=== PATIENT | female | born 1990 | race Caucasian/White ===

== ENCOUNTER 2017-06-17 23:20 | Emergency (ER) | payer OTHER ==
[~2017-06-17] VITALS: Ht 154.9 cm; Wt 61.8 kg
[~2017-06-17 23:20] MED LIST: ASPI1TAB30 PO; ETON1VAG VG; LORAZEPAM PO; NITR50CA PO; VIT1CAPS34 PO; VORT10TA PO
[2017-06-17] MEDS ORDERED: LORA1TAB PO (23:50)
[2017-06-18] MEDS ORDERED: SODIUM CHLORIDE FLUSH 10ML SYR IVF ONE
[2017-06-18] MEDS ORDERED: MORPHINE SULFATE 4 MG/ML, 1ML IVPush PRN
[2017-06-18] MEDS ORDERED: ONDANSETRON 2MG/ML, 2ML IVPush ONE
[2017-06-18] MEDS ORDERED: SODIUM CHLORIDE 0.9% 1,000ML IVBOLUS ONE
[2017-06-18] MEDS ORDERED: MORPHINE SULFATE 4 MG/ML, 1ML ONE (00:09)
[2017-06-18] MEDS ORDERED: ONDANSETRON 2MG/ML, 2ML ONE (00:09)
[2017-06-18 00:25] LABS: ASPARTATE AMINO TRANSFERASE 15 U/L (15-37); BLOOD UREA NITROGEN 10 mg/dL (7-18)
[2017-06-18 02:00] VITALS: BP 117/78
== END 2017-06-18 02:05 | disposition home or self-care (01) ==
LOC: ED 06-18 01:28
DX: R10.2 Pelvic and perineal pain (principal); R11.0 Nausea; Z87.891 Personal history of nicotine dependence; Z90.49 Acquired absence of other specified parts of digestive tract
CPT/HCPCS: 36415; 76830; 80053; 81003; 84703; 85025; 93005; 96361; 96374; 96375; 99285; J2405; J7030

== ENCOUNTER 2017-08-23 18:07 | Emergency (ER) | payer OTHER ==
[~2017-08-23] VITALS: Ht 154.9 cm; Wt 60.4 kg
[~2017-08-23 18:07] MED LIST changes: -ASPI1TAB30 PO; +ASPI1TAB31 PO; +LORA1TAB PO
[2017-08-23] MEDS ORDERED: METHOCARBAMOL 750 MG TABLET PO ONE (19:00)
[2017-08-23] MEDS ORDERED: METHOCARBAMOL 750 MG TABLET ONE (19:17)
[2017-08-23] MEDS ORDERED: ONDANSETRON ODT 4 MG ONE (19:19)
[2017-08-23] MEDS ORDERED: ONDANSETRON ODT 4 MG PO ONE (19:30)
[2017-08-23 21:23] VITALS: BP 126/62
== END 2017-08-23 21:26 | disposition home or self-care (01) ==
LOC: ED 20:34
DX: S16.1XXA Strain of muscle, fascia and tendon at neck level, initial encounter (principal); S29.012A Strain of muscle and tendon of back wall of thorax, initial encounter; G89.11 Acute pain due to trauma; Z87.891 Personal history of nicotine dependence; V43.52XA Car driver injured in collision with other type car in traffic accident, initial encounter; Y93.89 Activity, other specified; Y92.410 Unspecified street and highway as the place of occurrence of the external cause; Y99.8 Other external cause status
CPT/HCPCS: 72072; 72125; 73610; 81001; 87086; 99285; Q0162

== ENCOUNTER 2018-04-07 00:53 | Emergency (ER) | payer OTHER ==
[~2018-04-07] VITALS: Ht 154.9 cm; Wt 63.1 kg
[2018-04-07 00:54] VITALS: BP 145/96
[2018-04-07] MEDS ORDERED: NITR100C56 PO (01:05)
[2018-04-07] MEDS ORDERED: PRENATAL (01:05)
[2018-04-07 01:37] LABS: CULTURE INDICATED? YES; HCG UR SG 1.011 (1.003-1.030); MICROSCOPIC AUTO
== END 2018-04-07 02:12 | disposition home or self-care (01) ==
LOC: ED 02:05
DX: N30.90 Cystitis, unspecified without hematuria (principal); Z87.891 Personal history of nicotine dependence; Z90.49 Acquired absence of other specified parts of digestive tract
CPT/HCPCS: 81001; 81025; 87086; 99284

== ENCOUNTER 2018-06-04 16:34 | Emergency (ER) | payer OTHER ==
[~2018-06-04] VITALS: Ht 162.6 cm; Wt 68.0 kg
[~2018-06-04 16:34] MED LIST changes: +NITR100C56 PO; +PRENATAL
[2018-06-04 17:13] LABS: BASOPHILS # (AUTO) 0.03 x10^3/uL (0-0.1); BASOPHILS % (AUTO) 1 % (0-1); EOSINOPHILS # (AUTO) 0.21 x10^3/uL (0-0.4); EOSINOPHILS % (AUTO) 4 % (1-7); LYMPHOCYTES # (AUTO) 1.91 x10^3/uL (1-3.4); LYMPHOCYTES % (AUTO) 34 % (22-44); MD NO; MEAN CORPUSCULAR HEMOGLOBIN 31.3 pg (27.0-34.8); MEAN CORPUSCULAR HGB CONC 34.4 g/dL (32.4-35.8); MEAN PLATELET VOLUME 7.7 fL (7.4-10.4); MONOCYTES # (AUTO) 0.51 x10^3/uL (0.2-0.8); MONOCYTES % (AUTO) 9 % (2-9); NEUTROPHILS # (AUTO) 2.93 x10^3/uL (1.8-6.8); NEUTROPHILS % (AUTO) 52 % (42-75); PLATELET COUNT 268 x10^3/uL (130-400); RED BLOOD COUNT 4.62 x10^6/uL (3.82-5.3); RED CELL DISTRIBUTION WIDTH 13.4 % (9.6-15.2)
[2018-06-04] MEDS ORDERED: PREN1TAB28 PO (17:15)
[2018-06-04 17:19] LABS: MICROSCOPIC NOT IND
[2018-06-04 17:20] LABS: CULTURE INDICATED? NO
[2018-06-04 17:24] LABS: ALBUMIN 3.8 g/dL (3.4-5.0); ANION GAP 6 mmol/L (5-15); CALCIUM 8.9 mg/dL (8.5-10.1); CHLORIDE 105 mmol/L (98-107); CREATININE 0.67 mg/dL (0.55-1.02)
[2018-06-04 18:14] VITALS: BP 125/80
== END 2018-06-04 18:34 | disposition home or self-care (01) ==
LOC: ED 18:29
DX: R10.2 Pelvic and perineal pain (principal); K59.00 Constipation, unspecified; R11.0 Nausea; Z87.442 Personal history of urinary calculi; Z90.89 Acquired absence of other organs
CPT/HCPCS: 36415; 74018; 76830; 80048; 81003; 82040; 84703; 85025; 86901; 99285